=== PATIENT | male | born 1965 | race Caucasian/White ===

== ENCOUNTER 2020-01-05 12:25 | Emergency (ER) | payer MEDICAID, SELFPAY ==
[~2020-01-05] VITALS: Ht 185.4 cm; Wt 81.6 kg
[2020-01-05 12:47] VITALS: Ht 185.4 cm; Wt 81.6 kg
[2020-01-05 14:12] LABS: PLATELET COUNT 180 x10^3mcL (130-400); RED CELL DISTRIBUTION WIDTH 13.6 % (11.5-14.5)
[2020-01-05 14:14] LABS: BASOPHIL % 0 % (0-2)
[2020-01-05 14:23] LABS: CALCIUM 9.7 mg/dL (8.5-10.1); CARBON DIOXIDE 25.7 mmol/L (21-32); CREATININE SERUM 1.4 mg/dL (0.7-1.3); POTASSIUM SERUM 3.5 mmol/L (3.5-5.1)
[2020-01-05 14:27] LABS: ALBUMIN 4.5 g/dL (3.4-5.0); BILIRUBIN TOTAL 0.7 mg/dL (0.20-1.00); TOTAL PROTEIN, SERUM 7.9 g/dL (6.4-8.2)
[2020-01-05 18:16] VITALS: BP 168/92
== END 2020-01-05 18:16 | disposition short-term general hospital (02) ==
LOC: ED 12:25
PROVIDERS: Emergency Medicine
DX: I71.02 Dissection of abdominal aorta (principal); I71.01 Dissection of thoracic aorta; K57.92 Diverticulitis of intestine, part unspecified, without perforation or abscess without bleeding
CPT/HCPCS: J2543; J3490; J7030; Q9967